=== PATIENT | male | born 1930 | race Caucasian/White ===

== ENCOUNTER 2018-03-21 14:37 | Emergency (ER) | payer MEDICARE, OTHER ==
[2018-03-21] MEDS: IBUPROFEN 600 MG TAB PO (16:34)
== END 2018-03-21 18:15 | disposition home or self-care (01) ==
LOC: E/R 14:37
DX: S39.92XA Unspecified injury of lower back, initial encounter (principal); S76.012A Strain of muscle, fascia and tendon of left hip, initial encounter; J45.909 Unspecified asthma, uncomplicated; V49.59XA Passenger injured in collision with other motor vehicles in traffic accident, initial encounter; Z95.0 Presence of cardiac pacemaker
CPT/HCPCS: 72131; 73700; 99285-25